=== PATIENT | male | born 1955 | race Caucasian/White ===

== ENCOUNTER 2019-05-24 02:49 | Inpatient (IN) | payer OTHER ==
[~2019-05-24] VITALS: Ht 170.2 cm; Wt 76.7 kg
[2019-05-24] MEDS ORDERED: NS(*) 0.9% 1000 ML BAG 1,000 ML IV ONE ×3 (02:53→05:20)
[2019-05-24] MEDS ORDERED: diphenhydrAMINE 50 MG/ML VIAL IVP ONE (02:55)
[2019-05-24] MEDS ORDERED: methylPREDNIS SUCC 125 MG/2ML IVP ONE (02:55)
[2019-05-24] MEDS ORDERED: ALBUTEROL/IPRATROPIUM 3 ML NEB NEB ONE ×2 (02:55→05:40)
--- NOTE | 2019-05-24 03:05 | ER Report ---
History and Physical Time Seen By MD: 02:55 (JOHANNA JENSEN DO) Time Seen By MD: 07:05 (PRASANNA LEWIS DO) HPI/ROS CHIEF COMPLAINT: Swollen tongue respiratory distress HISTORY OF PRESENT ILLNESS: 63-year-old male brought in by EMS from [facility]. Patient has an extensive history of multiple myeloma, status post failed stem cell transplant, now herpes encephalitis. Patient is brought in with a swollen tongue. He's having some difficulty breathing. His respiratory rate 40. Patient has a history of herpes simplex virus. 6. Encephalitis. He is considered contagious. Report from [facility] staff states that he presented with tongue swelling 1 week ago. Tonight the nurses concern to his respiratory status is worse. Pulse ox was low. His respiratory rate was up. Please see [facility] H&P. REVIEW OF SYSTEMS: Respiratory: As above Cardiovascular: No chest pain, no palpitations. Gastrointestinal: No vomiting, no abdominal pain. Musculoskeletal: No back pain. (JOHANNA JENSEN DO) HPI/ROS Please see Dr. Jensen's note (PRASANNA LEWIS DO) Allergies: Coded Allergies: almond (Verified Allergy, Unknown, 05/24/19) coconut oil (Verified Allergy, Unknown, 05/24/19) codeine (Verified Allergy, Unknown, 05/24/19) corn syrup (Verified Allergy, Unknown, 05/24/19) lentils (Verified Allergy, Unknown, 05/24/19) levofloxacin (Verified Allergy, Unknown, 05/24/19) onion (Verified Allergy, Unknown, 05/24/19) peach (Verified Allergy, Unknown, 05/24/19) peanut (Verified Allergy, Unknown, 05/24/19) pumpkin (Verified Allergy, Unknown, 05/24/19) soybean (Verified Allergy, Unknown, 05/24/19) watermelon (Verified Allergy, Unknown, 05/24/19) Uncoded Allergies: KIDNEY BEANS (Allergy, Unknown, 05/24/19) Home Meds Reported Medications Hydrocodone Bit/Acetaminophen (HYDROCODON-ACETAMINOPHEN 5-325) 1 Each Tablet, 1 EACH FT Q4H, TAB 05/24/19 Docusate Sodium (DOCU LIQUID) 50 Mg/5 Ml Liquid, 100 MG FT Q12H 05/24/19 [Peptomen 1.5 ] No Conflict Check, 240 ML FT FIVE TIMES A DAY 05/24/19 Oxycodone Hcl (OXYCONTIN) 10 Mg Tab.er.12h, 5 MG FT Q6H, TAB 05/24/19 Divalproex Sodium (DIVALPROEX SODIUM) 500 Mg Tablet.dr, 750 MG FT BID, TAB 05/24/19 Clonazepam (CLONAZEPAM) 1 Mg Tablet, 1 MG PO TID, #6 TAB 05/24/19 Baclofen (BACLOFEN) 20 Mg Tablet, 20 MG FT TID, #15 TAB 05/24/19 Potassium Chloride (POTASSIUM CHLORIDE) 20 Meq Packet, 20 MEQ FT QDAY, PACKET 05/24/19 Acyclovir (ACYCLOVIR) 800 Mg Tablet, 800 MG FT BID, #10 TAB 05/24/19 Lactobacillus Acidophilus/Pect (Acidophilus-Pectin Capsule) 1 Each Capsule, 1 TAB FT BID 05/24/19 Prednisone 5 Mg Tab (PREDNISONE 5 MG TAB) 5 Mg Tablet, 5 MG PO QDAY, TAB 05/24/19 Miconazole Nitrate (Athlete's Foot) 71 Gm Powder 05/24/19 Enoxaparin Sodium (LOVENOX) 40 Mg/0.4 Ml Disp.syrin, 40 MG SQ DAILY 05/24/19 [Lidocaine Patch] No Conflict Check, 1 PATCH 05/24/19 Lansoprazole (PREVACID) 30 Mg Capsule.dr, 30 MG FT HS, CAP 05/24/19 Gabapentin (GABAPENTIN) 300 Mg/6 Ml Solution, 900 MG FT HS 05/24/19 Bisacodyl (BISACODYL) 10 Mg Supp.rect, 10 MG FT DAILY, SUPP.RECT 05/24/19 Discontinued Reported Medications [Miconazorb Af Powder] No Conflict Check 05/24/19 Past Medical/Surgical History IgG lambda light chain multiple myeloma. 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 Encephalitis and viremia History of prostate cancer, status post radical prostatectomy Anemia. History of West Nile virus. Peripheral neuropathy. Compression fractures of T7, T12 and L1 Spinal stenosis. Spinal spondylosis GERD Hypertension. Severe deconditioning. Electrolyte abnormalities Dysphagia. Tremor. Adrenal insufficiency (JOHANNA JENSEN DO) Reviewed Nurses Notes: Yes Old Medical Records Reviewed: Yes (JOHANNA JENSEN DO) Constitutional Vital Sign - Last 24 Hours 05/24/19 05/24/19 05/24/19/29/19 02:49 03:00 03:15 03:15 Temp 102.0 Pulse 106 118 125 Resp 42 24 B/P (MAP) 106/73 Pulse Ox 89 88 O2 Delivery Nasal Cannula O2 Flow Rate 6.0 05/24/19 05/24/19 05/24/19 05/24/19 03:15 03:19 03:30 03:34 Pulse 111 113 Resp 48 26 B/P (MAP) 135/105 (115) Pulse Ox 92 95 94 O2 Delivery Oxy Mask 05/24/19 05/24/19 05/24/19 05/24/19 03:36 03:45 03:49 04:00 Pulse 110 B/P (MAP) 139/94 (109) 160/103 (122) 151/98 (115) 05/24/19 05/24/19 05/24/19 05/24/19 04:04 04:15 04:19 04:30 Pulse 107 105 Resp 26 30 B/P (MAP) 147/85 (105) 145/85 (105) Pulse Ox 96 96 05/24/19 05/24/19 05/24/19 05/24/19 04:34 04:45 04:45 04:50 Temp 102.8 Pulse 104 103 Resp 34 27 B/P (MAP) 146/83 (104) Pulse Ox 95 97 05/24/19 05/24/19 05/24/19 05/24/19 05:00 05:15 05:20 05:43 Pulse 96 85 Resp 20 20 B/P (MAP) 140/86 (104) 108/70 (83) Pulse Ox 95 05/24/19 05/24/19 05/24/19 05/24/19 05:43 05:50 06:04 06:30 Temp 100.9 Pulse 81 Resp 34 B/P (MAP) 119/89 (99) Pulse Ox 92 96 O2 Delivery Oxy Mask O2 Flow Rate 5.0 Intake and Output 05/23/19 05/23/19 05/24/19 15:03 23:03 07:03 Intake Total 3100 ml Output Total 50 ml Balance 3050 ml (PRASANNA LEWIS DO) Physical Exam General Appearance: The patient is alert, has no immediate need for airway protection and no current signs of toxicity. Vital signs stable, afebrile, pulse ox in the mid 80s on 2 L O2 HEENT: Pupils equal and round no injection. There is edema to the right eyelid and the tongue is swollen in the mouth. Respiratory: Chest is non tender, lungs are clear to auscultation. Rales and rhonchi bilaterally Cardiac: regular rate and rhythm Gastrointestinal: Abdomen is soft and non tender, no masses, bowel sounds normal. Feeding tube intact in left upper quadrant Musculoskeletal: Neck: Neck is supple and non tender. Contracture, flex and Extremities have full range of motion and are non tender. Skin: No rashes or lesions. DIFFERENTIAL DIAGNOSIS: After history and physical exam differential diagnosis was considered for shortness of breath including but not limited to pulmonary infectious process, COPD, asthma, pulmonary embolus, airway obstruction and congestive heart failure. (JOHANNA JENSEN DO) Physical Exam Please see Dr. Jensen's note (PRASANNA LEWIS DO) Medical Decision Making Data Points Result Diagram: 05/24/19 0300 05/24/19 0300 Laboratory Hematology Test 05/24/19 03:00 White Blood Count 10.5 k/uL (4.5-11.0) Red Blood Count 3.83 M/uL (4.00-5.60) L Hemoglobin 12.0 g/dL (14.0-18.0) L Hematocrit 36.2 % (42.0-52.0) L Mean Corpuscular Volume 94.5 fL (80.0-96.0) Mean Corpuscular Hemoglobin 31.3 pg (26.0-33.0) Mean Corpuscular Hemoglobin Concent 33.1 g/dL (32.0-36.0) Red Cell Distribution Width 15.9 % (11.5-14.5) H Platelet Count 374 K/uL (150-450) Mean Platelet Volume 7.2 fL (7.2-11.1) Neutrophils (%) (Auto) 86.6 % (39.4-72.5) H Lymphocytes (%) (Auto) 5.4 % (17.6-49.6) L Monocytes (%) (Auto) 7.4 % (4.1-12.4) Eosinophils (%) (Auto) 0.2 % (0.4-6.7) L Basophils (%) (Auto) 0.4 % (0.3-1.4) Nucleated RBC Relative Count (auto) 0.0 /100WBC Neutrophils # (Auto) 9.1 K/uL (2.0-7.4) H Lymphocytes # (Auto) 0.6 K/uL (1.3-3.6) L Monocytes # (Auto) 0.8 K/uL (0.3-1.0) Eosinophils # (Auto) 0.0 K/uL (0.0-0.5) Basophils # (Auto) 0.0 K/uL (0.0-0.1) Nucleated RBC Absolute Count (auto) 0.00 K/uL Chemistry Test 05/24/19 03:00 Sodium Level 134 mmol/L (137-145) Potassium Level 4.4 mmol/L (3.5-5.0) Chloride Level 99 mmol/L (98-107) Carbon Dioxide Level 26 mmol/L (22-30) Blood Urea Nitrogen 19 mg/dl (9-21) Creatinine 0.50 mg/dl (0.66-1.25) Glomerular Filtration Rate Calc > 60.0 Random Glucose 146 mg/dl (75-110) Lactate 1.9 mmol/L (0.7-2.1) Calcium Level 8.6 mg/dl (8.4-10.2) Total Bilirubin 0.4 mg/dl (0.2-1.3) Aspartate Amino Transf (AST/SGOT) 27 U/L (0-35) Alanine Aminotransferase (ALT/SGPT) 23 U/L (0-56) Alkaline Phosphatase 74 U/L (0-126) Total Protein 6.5 g/dl (6.3-8.2) Albumin 3.2 g/dl (3.5-5.0) Toxicology Test 05/24/19 03:00 Valproic Acid (Depakene) Level 33.5 ug/ml Urinalysis Test 05/24/19 02:53 Urine Color Yellow Urine Clarity Slightly-cloudy Urine pH 5.0 pH (4.8-9.5) Urine Specific [place] 1.026 Urine Protein 30 mg/dL (NEGATIVE) Urine Glucose (UA) Negative mg/dL (NEGATIVE) Urine Ketones Trace mg/dL (NEGATIVE) Urine Blood Negative (NEGATIVE) Urine Nitrite Negative (NEGATIVE) Urine Bilirubin Negative (NEGATIVE) Urine Urobilinogen Negative mg/dL (0.2-1.9) Urine Leukocyte Esterase Small (NEGATIVE) Urine RBC 28 /HPF (0-2/HPF) Urine WBC 145 /HPF (0-5/HPF) Urine Squamous Epithelial Cells Moderate /LPF (NONE-FEW) Urine Transitional Epithelial Cells Few /LPF (NONE-FEW) Urine Bacteria Few /HPF (NONE-FEW) Urine Hyaline Casts Few /LPF (NONE-FEW) Urine Mucus Few /HPF (NONE-FEW) Urine Yeast (Budding) Few /HPF (PRASANNA LEWIS DO) EKG/Imaging EKG Interpretation 12 lead EKG: Rhythm: Sinus tachycardia, rate 10 4 bpm [place]: normal QRS: Left anterior fascicular block ST segments: normal, no evidence of ischemia, no old EKGs for comparison Imaging X-ray: Single view portable chest x-ray was obtained. I viewed the images myself on the PACS system. My interpretation of the images is: Limited image, but no dean infiltrate noted. There is obstruction of the right lung lopez from his contracted head blocking the view.. The radiologist interpretation had no clinically significant variation from this interpretation. (JOHANNA JENSEN DO) ED Course/Re-evaluation Clinical Indication for ER IV: Hydration, IV Access ED Course [facility] with tongue swelling and hypoxia. Patient has excessive secretions. Patient has a known seizure disorder. His valproic acid level came back subtherapeutic. He is currently on 750 mg per feeding tube twice a day. This likely needs to be increased with thousand twice a day to get his level into the therapeutic range. I suspect the patient has been seizing and biting his tongue, multiple times. It is grossly swollen in the anterior aspect. Patient's white blood cell counts normal. Patient's treated with DuoNeb's, recently Become a sodium Medrol, Benadryl IV. In case his tongue swelling is related to angioedema or allergic reaction, which seems unlikely in his condition. Patient's given Zosyn for potential tongue infection and urinary tract infection. He is on Bactrim 3 times weekly for prevention. Patient is chronically on acyclovir 800 mg through his feeding tube. Patient did spike a fever here to nearly 103. Patient was given Tylenol 650 mg in his feeding tube, as well as Motrin 600 mg. He received 3 L of saline. Initially his blood pressure was 107. He was tachycardic in the 120s. Responded to fluid resuscitation. His lactate was normal. Patient will likely need to be admitted to the hospital for several days of IV antibiotic and close monitoring of his tongue swelling. I did consider intubating the patient and do not think it is indicated at this time. Intubating the patient may be problematic with his neck contracture and his swollen tongue. He seems to oxygenate well with a mask over his nose. He does have significant secretions that need to be suctioned frequently. Decision to Disposition Date: May 24, 2019 Decision to Disposition Time: 05:22 (JOHANNA JENSEN DO) ED Course I assumed patient care from Dr. Jensen at shift change at 7:00. Patient was placed on lactated Ringer's maintenance at 125 an hour. I discussed the patient with Dr. Mary allen who accepted the patient to the hospitalist service. Patient was hemodynamically stable at time of admission. Decision to Disposition Date: May 24, 2019 Decision to Disposition Time: 07:55 (PRASANNA LEWIS DO) Depart Departure Latest Vital Signs Vital Signs Date Time Temp Pulse Resp B/P (MAP) Pulse Ox O2 Delivery O2 Flow Rate FiO2 05/24/19 06:30 100.9 05/24/19 06:04 119/89 (99) 05/24/19 05:50 81 34 96 05/24/19 05:43 Oxy Mask 5.0 (PRASANNA LEWIS DO) Impression: Primary Impression: Tongue swelling Additional Impressions: Tongue infection Urinary tract infection Herpes encephalitis Hypoxia Seizure disorder Condition: Improved Disposition: Admitted from ER Problem Qualifiers Additional Impressions: Urinary tract infection Urinary tract infection type: acute cystitis Hematuria presence: without hematuria Qualified Codes: N30.00 - Acute cystitis without hematuria JOHANNA JENSEN DO May 24, 2019 03:05 PRASANNA LEWIS DO May 24, 2019 07:09
[2019-05-24] MEDS ORDERED: NS 0.9% NEB 3 ML SOLN INH PRN (03:10)
[2019-05-24] MEDS ORDERED: EPINEPHrine 2.25% 0.5 ML NEB NEB ONE (03:10)
[2019-05-24 03:29] LABS: PLATELET COUNT, AUTOMATED 374 K/uL (150-450)
--- NOTE | 2019-05-24 03:47 | RADIOLOGY IMAGING REPORT ---
FACILITY: [facility] PATIENT NAME: Shamar Torres : 1955 MR: [id number] V: [id number] EXAM DATE: ORDERING PHYSICIAN: JOHANNA HERNANDEZ TECHNOLOGIST: [place] [facility] [place]: Shamar Torres : 1955 Visit/Account:[id number] Date of Sevice: 05/24/2019 CHEST SINGLE AP HISTORY: Unresponsive. Kyphosis. COMPARISON: 05/17/2019. FINDINGS: The patient is rotated to the right and the patient's chin obscures a large Imani of the r ight lung. Lines/tubes: Left chest wall port terminating in the superior vena cava. Lungs/pleura: Minimal linear atelectasis in the left lung base. No definite abnormality in the right lung, although the right lung is not well seen secondary to patient positioning. Heart: Negative. Mediastinum: Negative. Bony structures/body wall: Cement in a couple of inferior thoracic or upper lumbar vertebral bodies. IMPRESSION: 1. Suboptimal evaluation secondary to patient positioning. The patient is rotated to the right and th e patient's chin obscures a large portion of the right lung. 2. Minimal linear atelectasis in the left lung base. 3. No definite abnormality in the right lung, however the right lung is not well seen secondary to pa tient positioning. Report Dictated By: Leonides Du MD at 05/24/2019 3:36 AM Report E-Signed By: Leonides Du MD at 05/24/2019 3:40 AM WSN:[id number]
[2019-05-24] MEDS ORDERED: [UNRECOGNIZED DRUG - OTHER] (04:18)
[2019-05-24] MEDS ORDERED: ENOX40DI8 SQ (04:18)
[2019-05-24] MEDS ORDERED: GABA300S FT ×2 (04:18→12:20)
[2019-05-24] MEDS ORDERED: LAN30PT FT (04:18)
[2019-05-24] MEDS ORDERED: LIDOCAINE PATCH (04:18)
[2019-05-24] MEDS ORDERED: BISA10SU62 RC (04:18)
[2019-05-24] MEDS ORDERED: LACT1CAP18 FT (04:30)
[2019-05-24] MEDS ORDERED: OXYC-823 FT (04:30)
[2019-05-24] MEDS ORDERED: ACYC800T99 FT (04:30)
[2019-05-24] MEDS ORDERED: POTA20PA25 FT (04:30)
[2019-05-24] MEDS ORDERED: BACL-51 FT (04:30)
[2019-05-24] MEDS ORDERED: DIVA500T47 FT (04:30)
[2019-05-24] MEDS ORDERED: CLON-333 FT (04:30)
[2019-05-24] MEDS ORDERED: PRE5 FT (04:30)
[2019-05-24] MEDS ORDERED: MICO71PO4 (04:30)
[2019-05-24] MEDS ORDERED: ACETAMINOPHEN 160 MG/5 ML UDC FT ONE (04:40)
[2019-05-24] MEDS ORDERED: PIPERACILLIN/TAZO*3.375GM VIAL 3.375 GM in NS(*) 0.9% 100 ML MINI-BAG 100 ML IVPB ONE (04:45)
[2019-05-24] MEDS ORDERED: IBUPROFEN 100 MG/5 ML UDCUP PO ONE (05:20)
[2019-05-24] MEDS ORDERED: VALPROIC ACID 250 MG/5 ML FT ONE (05:25)
[2019-05-24] MEDS ORDERED: [UNRECOGNIZED DRUG - OTHER] FT (05:59)
[2019-05-24] MEDS ORDERED: HYDR-385 FT (06:01)
[2019-05-24] MEDS ORDERED: DOCU50LI30 FT (06:01)
[2019-05-24] MEDS ORDERED: LR(*) 1000 ML BAG 1,000 ML IV ONE (07:21)
--- NOTE | 2019-05-24 08:39 | EKG ---
[place] [facility] [place] MADAN SHANE : [id number] MR: [id number] V: [id number] EXAM DATE: ORDERING PHYSICIAN: JOHANNA HERNANDEZ TECHNOLOGIST: SHERRY Dorsey Reason : Blood Pressure : / mmHG Vent. Rate : 104 BPM Atrial Rate : 104 BPM P-R Int : 118 ms QRS Dur : 080 ms QT Int : 332 ms P-R-T Axes : 057 -61 061 degrees QTc Int : 436 ms Sinus tachycardia Left anterior fascicular block Abnormal ECG No previous ECGs available Confirmed by Efraín Segovia ([id number]) on 05/25/2019 12:34:43 AM Referred By: Confirmed By:Efraín Dobbins
[2019-05-24 08:59] VITALS: BP 101/66
[2019-05-24] MEDS ORDERED: SULF473O2 FT (12:20)
[2019-05-24] MEDS ORDERED: [UNRECOGNIZED DRUG - CODE] FT (12:20)
[2019-05-24] MEDS ORDERED: LIDO700A19 TOP (12:20)
[2019-05-24] MEDS ORDERED: POLY17PO25 FT (12:20)
[2019-05-24] MEDS ORDERED: DIVA125C12 FT (12:20)
[2019-05-24] MEDS ORDERED: OXYC5CAP21 FT (12:20)
[2019-05-24] MEDS ORDERED: BISA-229 FT (12:20)
[2019-05-24] MEDS ORDERED: ACET650S5 FT (12:20)
[2019-05-24] MEDS ORDERED: PROM25SU8 RC (12:20)
[2019-05-24] MEDS ORDERED: CHLO473M14 PO (12:20)
[2019-05-24 12:22] VITALS: BP 91/53
[2019-05-24] MEDS ORDERED: FLUSH 10 ML SYR IVP PRN (14:20)
[2019-05-24] MEDS ORDERED: ONDANSETRON 4 MG/2 ML VIAL IVP PRN (14:20)
[2019-05-24 15:03] VITALS: BP 108/67
[2019-05-24] MEDS: PIPERACILLIN/TAZO*3.375GM VIAL 3.375 GM in NS(*) 0.9% 100 ML MINI-BAG 100 ML IVPB SCH ×2 (15:09→20:49)
[2019-05-24] MEDS: NS(*) 0.9% 1000 ML BAG 1,000 ML IV PRN (17:28)
--- NOTE | 2019-05-24 19:13 | History & Physical ---
History of Present Illness Chief Complaint dyspnea History of Present Illness 63M presented with caregiver concern of increased work of breathing. PMHx significant for multiple myeloma, s/p stem cell transplant. Complicated by HHV6 encephalitis. Transplant done , began having increased confusion and was diagnosed with HHV6 encephalitis in . Was discharged to [facility] where he spent around one month per family. He was just discharged to [facility] for continued care. Staff reported increased work of breathing and he was brought to ER. Patient febrile, needing supplemental O2. At baseline patient is non-verbal does not interact per staff at [facility]. He grimaces at pain but is otherwise unresponsive. Discussed with family and patient is DNR. Neurology evaluation during recovery estimated 80% likely to remain in near vegetative state per record review. History Problems: (1) Seizure disorder Status: Chronic (2) Hypoxia Status: Chronic (3) Herpes encephalitis Status: Chronic Home Meds Reported Medications Promethazine HCl (Phenergan) 25 Mg Supp.rect, 1 SUPP.RECT RC Q6H PRN for NAUSEA 05/24/19 Polyethylene Glycol 3350 (MIRALAX) 17 Gm Powd.pack, 17 GM FT QDAY PRN for CONSTIPATION, PKT 05/24/19 Acetaminophen (ACETAMINOPHEN) 650 Mg/20.3 Ml Solution, 650 MG FT Q4H PRN for PAIN, ML FOR PAIN LEVEL 1-3 OR FEVER >100 05/24/19 Nutritional Supplement (PEPTAMEN 1.5) 250 Ml Liquid, 240 ML FT 5XD 05/24/19 Oxycodone Hcl (OXYCODONE HCL) 5 Mg Capsule, 1 CAP FT Q6H, CAPSULE 05/24/19 Divalproex Sodium (DIVALPROEX SODIUM) 125 Mg Cap.sprink, 750 MG FT TID, CAP 05/24/19 Chlorhexidine Gluconate (Peridex) 0.12 % Mouthwash, 15 ML PO BID SWISH AND SPIT; FOR ORAL CARE 05/24/19 Gabapentin (GABAPENTIN) 300 Mg/6 Ml Solution, 600 MG FT BID 05/24/19 Sulfamethoxazole/Trimethoprim (Sulfatrim Pediatric Suspension) 473 Ml Oral.susp, 20 ML FT 3XW GIVEN ON MON WED & FRI FOR INFECTION ORDER DATE 05/21/2019 05/24/19 Lidocaine (Lidocaine) 5 % Adh..patch, 1 PATCH TOP QDAY APPLY QDAY @ 9:00 REMOVE @ 21:00 05/24/19 Bisacodyl (DULCOLAX) 5 Mg Tablet.dr, 2 TAB FT QDAY 05/24/19 Hydrocodone Bit/Acetaminophen (HYDROCODON-ACETAMINOPHEN 5-325) 1 Each Tablet, 1 EACH FT Q4H, TAB 05/24/19 Docusate Sodium (DOCU LIQUID) 50 Mg/5 Ml Liquid, 100 MG FT Q12H PRN for CONSTIPATION 05/24/19 Clonazepam (CLONAZEPAM) 1 Mg Tablet, 1 MG FT TID, #6 TAB 05/24/19 Baclofen (BACLOFEN) 20 Mg Tablet, 20 MG FT TID, #15 TAB 05/24/19 Potassium Chloride (POTASSIUM CHLORIDE) 20 Meq Packet, 20 MEQ FT BID, PACKET WITH AT LEAST 4 OZ OF LIQUID 05/24/19 Acyclovir (ACYCLOVIR) 800 Mg Tablet, 800 MG FT BID, #10 TAB 05/24/19 Lactobacillus Acidophilus/Pect (Acidophilus-Pectin Capsule) 1 Each Capsule, 1 TAB FT BID 05/24/19 Prednisone 5 Mg Tab (PREDNISONE 5 MG TAB) 5 Mg Tablet, 5 MG FT QDAY, TAB 05/24/19 Miconazole Nitrate (Athlete's Foot) 71 Gm Powder APPLY TOPICALLY TO AFFECTED AREAS EVERY 24 HRS PRN SKIN IRRITATION 05/24/19 Enoxaparin Sodium (LOVENOX) 40 Mg/0.4 Ml Disp.syrin, 40 MG SQ DAILY 05/24/19 Lansoprazole (PREVACID) 30 Mg Capsule.dr, 30 MG FT HS, CAP 05/24/19 Gabapentin (GABAPENTIN) 300 Mg/6 Ml Solution, 900 MG FT HS 05/24/19 Bisacodyl (BISACODYL) 10 Mg Supp.rect, 10 MG RC DAILY, SUPP.RECT SECOND CHOICE IF NO RESULT FROM TABLET VIA FEEDING TUBE 05/24/19 Discontinued Reported Medications [Peptomen 1.5 ] No Conflict Check, 240 ML FT FIVE TIMES A DAY 05/24/19 Oxycodone Hcl (OXYCONTIN) 10 Mg Tab.er.12h, 5 MG FT Q6H, TAB 05/24/19 Divalproex Sodium (DIVALPROEX SODIUM) 500 Mg Tablet.dr, 750 MG FT BID, TAB 05/24/19 [Miconazorb Af Powder] No Conflict Check 05/24/19 [Lidocaine Patch] No Conflict Check, 1 PATCH 05/24/19 Allergies: Coded Allergies: almond (Verified Allergy, Unknown, 05/24/19) coconut oil (Verified Allergy, Unknown, 05/24/19) codeine (Verified Allergy, Unknown, 05/24/19) corn syrup (Verified Allergy, Unknown, 05/24/19) lentils (Verified Allergy, Unknown, 05/24/19) levofloxacin (Verified Allergy, Unknown, 05/24/19) onion (Verified Allergy, Unknown, 05/24/19) peach (Verified Allergy, Unknown, 05/24/19) peanut (Verified Allergy, Unknown, 05/24/19) pumpkin (Verified Allergy, Unknown, 05/24/19) soybean (Verified Allergy, Unknown, 05/24/19) watermelon (Verified Allergy, Unknown, 05/24/19) Uncoded Allergies: KIDNEY BEANS (Allergy, Unknown, 05/24/19) Review of Systems Other unable to obtain other than noted Exam Vital Signs Vital Signs Date Time Temp Pulse Resp B/P (MAP) Pulse Ox O2 Delivery O2 Flow Rate FiO2 05/24/19 15:03 97.6 65 14 108/67 (81) 94 High-Flow Nasal Cannula 1.0 General Appearance: Afebrile Cardiovascular: Normal Rhythm & Peripheral Pulses Respiratory: No Respiratory Distress GI: Abd Soft and Non-Tender Extremities: Soft and Non Tender, Warm, Pulses, Perfused Medical Decision Making Data Points Result Diagram: 05/24/19 0300 05/24/19 0300 Assessment and Plan Problems: (1) Fever Status: Acute Assessment & Plan: Per family this has been ongoing with no source identified, he did complete vancomycin recently and had IJ removed 3 weeks ago. No previous culture data is available. CXR appears clear though suboptimally evaluated, he has needed O2 since coming to [place]. Urine appears dirty but has indwelling [place] since February 2019, unlikely this is source. Will cover with Zosyn and monitor cultures. (2) Hypoxia Status: Chronic Assessment & Plan: On 2L since coming [place], he is at baseline. (3) Encephalopathy Assessment & Plan: Appears to be chronic and at baseline, family report more interactivity but this may be more subjective than objective. Prognosis is poor. (4) Herpes encephalitis Status: Chronic Assessment & Plan: Now on chronic suppression after completing treatment with negative LP PCR. Unfortunately appears to have severe sequelae and prognosis is poor. Given period of time and possible continued decline would not anticipate any meaningful recovery. (5) Seizure disorder Status: Chronic Assessment & Plan: Per family no epileptiform activity on EEG multiple times. Was originally diagnosed due to repetitive tongue protrusion. He is on Depakote and was given increased dosing due to subtherapeutic level on admission. Venous Thromboembolism Antithrombotics Is Pt On Any Antithrombotics?: Yes Exam Sepsis Risk: No Definite Risk PETTY DOREEN JOSEPH DO May 24, 2019 19:13
[2019-05-24 19:14] VITALS: BP 113/68
[2019-05-24] MEDS: ACYCLOVIR 200 MG CAP FT SCH (20:49)
[2019-05-24 23:45] VITALS: BP 120/78
[2019-05-25] MEDS: NS(*) 0.9% 1000 ML BAG 1,000 ML IV PRN ×2 (02:05→11:33)
[2019-05-25 03:30] VITALS: BP 126/80
[2019-05-25] MEDS: PIPERACILLIN/TAZO*3.375GM VIAL 3.375 GM in NS(*) 0.9% 100 ML MINI-BAG 100 ML IVPB SCH ×2 (03:36→09:43)
[2019-05-25 05:57] LABS: PLATELET COUNT, AUTOMATED 354 K/uL (150-450)
[2019-05-25 07:38] VITALS: BP 139/79
[2019-05-25] MEDS ORDERED: ENOXAPARIN 40 MG/0.4ML SYR SC SCH (09:00)
[2019-05-25] MEDS: ACYCLOVIR 200 MG CAP FT SCH (09:43)
[2019-05-25] MEDS ORDERED: KCL (*) 20 MEQ/100 ML PREMIX 100 ML IV SCH (10:00)
--- NOTE | 2019-05-25 10:52 | Hospitalist Progress Note ---
Subjective Progress Notes Subjective This patient was admitted for pneumonia. He had an aspiration episode overnight. Patient Complains of: Cardiovascular: No: Chest Pain Respiratory: No: Shortness of Breath Physical Exam Vital Signs Date Time Temp Pulse Resp B/P (MAP) Pulse Ox O2 Delivery O2 Flow Rate FiO2 05/25/19 07:38 98.0 87 28 139/79 (99) 94 Oxy Mask 5.0 Intake and Output 05/25/19 07:03 Intake Total 2078 ml Output Total 1150 ml Balance 928 ml Intake Oral 0 ml IV Total 2018 ml Tube Irrigant 60 ml Output Urine Total 1150 ml # Bowel Movements 3 Neuro: Other (Unresponsive. With minimal response to pain or deep suctioning.) Cardiovascular: Regular Rate and Rhythm Respiratory: Other (Bilateral rhonchi.) Extremities: No Edema Integumentary: No Cyanosis Result Diagram: 05/25/1951905/25/19519 Assessment and Plan Problems: (1) Fever Status: Acute Assessment & Plan: Per family this has been ongoing with no source identified, he did complete vancomycin recently and had IJ removed 3 weeks ago. He is on empiric treatment with Zosyn. One of two cultures is growing a gram positive cocci. 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 He has been in his current neurologic condition since that time. (3) Herpes encephalitis Status: Chronic Assessment & Plan: He remains on chronic acyclovir. (4) Hypoxia Status: Chronic Assessment & Plan: On 2L since coming to [place] in [place], he is at baseline. (5) Seizure disorder Status: Chronic Assessment & Plan: Per family no epileptiform activity on EEG multiple times. Was originally diagnosed due to repetitive tongue protrusion. He is on Depakote and was given increased dosing due to subtherapeutic level on admission. Exam Sepsis Risk: No Definite Risk VY PENNY DO May 25, 2019 10:52
--- NOTE | 2019-05-25 11:58 | Medical Nutrition Therapy ---
Nutrition Anthropometrics Height (Inches): 67.00 Height (Calculated Centimeters: 170.828583 Weight (Pounds): 169 Weight (Calculated Kilograms): 76.714 BMI: 26.5 Parish Nutrition Score: Probably Inadequate Parish Nutrition Risk Score: 11 Dietary Referral Nutrition Risk Factors: Nutrition Risk Comment: Physical Findings Physical Appearance: Overweight BMI 25-29 Skin Appearance Skin Appearance: Edema Edema Location Modifier: Edema Location: Generalized Type of Edema: Degree of Edema: Gastrointestinal Symptoms GI Symtoms: Diarrhea Tube Present: PEG Bowel Sounds: Recent Bowel Pattern: Stool Characteristics: Nutrition/Food History TPN/PPN Prior to Admit Nutritional Diagnosis Nutritional Risk Acuity 1: Tube Feed Unstable Nutritional Acuity: 1-High Nutrition Diagnosis: Involuntary Wt. Gain, Altered GI Function Nutrition Etiology: Physiological Causes Nutrition Problem/Etiology/Sym: Aspiration event, Decreased ability to clear secretions Energy Requirement: 1991 Protein Requirement: 92 (1.2g/kg) Fluid Requirement: 1991 Nutritional Support Tube Feeding Supplement Streng: Full Nutrition Monitoring & Eval RD Patient Assessment Time: [address] Assessment Type: RD Assessment Patient Nutrition Acuity: 1-High Follow Up Date: May 28, 2019 Nutritional Comment: 05/25/19-Pt admit from [facility], recent bone marrow transplant, has herpes encephalitis. Spoke with RN at [facility]. Pt was recieving Peptamen 1.5 (237 mL) 5x/day with 200mL free water every 8 hours via PEG tube. Discussed pt at IDT rounds, tube feeding was stopped last night due to an aspiration event. Pt in comatose state, is having increased secretions and has decreased ability to clear secretions. Will continue to monitor pt status and plan of care.DAVID RICE May 25, 2019 11:58
--- NOTE | 2019-05-25 12:22 | Miscellaneous Provider Note ---
Miscellaneous Provider Note Note I did speak with the patients over the phone today. She has requested that we transition to comfort measures and end of life care. This does seem like a reasonable decision given his current neurologic condition and prognosis. We have discontinued all nonessential medications. He has been started on morphine and lorazepam in addition to other comfort measures. An ECF evaluation has also been requested. VY PENNY DO May 25, 2019 12:22
[2019-05-25] MEDS: GLYCOPYRROLATE 0.2MG/ML 1 ML INJ IVP PRN (14:21)
[2019-05-25] MEDS: LORazepam 2 MG/ML VIAL IV PRN (14:24)
--- NOTE | 2019-05-25 15:52 | NUR ---
ECF Referral - Received referral, questioned since he is currently a resident of [facility]. Spoke with Dr. Shay and he reported he didn't have a preference on where he receives end of life care. Chiquis Knight, RN Utilization Review contacted and she stated that she had just spoken with his [facility] case work aide and agrees that he should return to [facility]. Unsure if SNF benefits (if he has them) would cover end of life care on a SNF. Message left for ADIA Serrano nurse.
--- NOTE | 2019-05-25 20:06 | Antimicrobial Stewardship ---
Antimicrobial Time Out Antimicrobial Stewardship MD Service: Hospitalist Indications: CAP, HAP Antimicrobial Used ZOSYN Start Date: May 24, 2019 Culture Results: Yes (G+ COCCI) Eligible for PO Conversion Eligable for PO Conversion: No Reviewed with Provider Reviewed w/ Provider on Rounds: No Comments Comments Patient admitted for suspected respiratory infection. Patient is now end of life care and all antimicrobials have been stopped. AARTI LORENZANA May 25, 2019 20:06
[2019-05-25 20:18] VITALS: BP 150/89
[2019-05-26] MEDS: LORazepam 2 MG/ML VIAL IV PRN ×6 (00:32→21:15)
[2019-05-26] MEDS: GLYCOPYRROLATE 0.2MG/ML 1 ML INJ IVP PRN ×2 (05:12→11:25)
[2019-05-26] MEDS: MORPHINE 2 MG/ML SYR IVP PRN ×2 (05:28→09:14)
[2019-05-26] MEDS ORDERED: TRIMETH/SULFA DS 160-800MG TAB FT SCH (09:00)
--- NOTE | 2019-05-26 11:00 | Hospitalist Progress Note ---
Subjective Progress Notes Subjective He is unresponsive to verbal, tactile stimuli. Anil-Richards respirations. Physical Exam Vital Signs Date Time Temp Pulse Resp B/P (MAP) Pulse Ox O2 Delivery O2 Flow Rate FiO2 05/26/19 09:32 89 Room Air 05/26/19 07:53 101.1 05/25/19 20:18 98 25 150/89 (109) 05/25/19 12:10 4.0 Intake and Output 05/26/19 07:03 Intake Total 1218 ml Output Total 1052 ml Balance 166 ml IV Total 1218 ml Output Urine Total 1050 ml Gastric Drainage Total 2 ml # Bowel Movements 2 General Appearance: Other (Unresponsive/Anil-Richards respirations) Neuro: Other (essentially flaccid in all extremities/does not withdraw or react to stimuli) Cardiovascular: Other (Tachycardic regular) Respiratory: Other (Diffuse rhonchi) Chest: Other (port left upper chest clean/dry/no erythema) GI: Other (soft/rare BS/PEG tube LUQ) Extremities: Warm, Perfused Integumentary: Generalized Fragile Skin Result Diagram: 05/25/1951905/25/19519 Assessment and Plan Problems: (1) Encephalopathy Assessment & Plan: 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 He has been in his current neurologic/vegetative condition since that time. His family has now decided to pursue only comfort measures/end-of-life care. The empiric antibiotics have been stopped. He is receiving IV analgesics, anxiolytics, anti-emetics as needed. (2) Fever Status: Acute Assessment & Plan: Per family this has been ongoing with no source identified, he did complete vancomycin recently and had IJ port removed 3 weeks ago. He was on empiric treatment with IV Zosyn. The antibiotics have now been stopped as family has requested comfort measures/end-of-life care. (3) Herpes encephalitis Status: Chronic Assessment & Plan: He was on chronic acyclovir. It has now been stopped as well. (4) Hypoxia Status: Chronic Assessment & Plan: On 2L since coming to altitude in [place], he is at baseline. (5) Seizure disorder Status: Chronic Assessment & Plan: Per family no epileptiform activity on EEG multiple times. Was originally diagnosed due to repetitive tongue protrusion. He was on Depakote, but this has been stopped. Exam Sepsis Risk: Severe Sepsis Risk JARED GAITAN MD May 26, 2019 11:00
[2019-05-26 18:49] VITALS: BP 121/78
[2019-05-27 07:05] VITALS: BP 151/85
[2019-05-27] MEDS: LORazepam 2 MG/ML VIAL IV PRN ×2 (11:50→16:48)
--- NOTE | 2019-05-27 13:53 | Hospitalist Progress Note ---
Subjective Progress Notes Subjective 63M appears comfortable this am. 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 He has been in his current neurologic/vegetative condition since that time. His family has now decided to pursue only comfort measures/end-of-life care. The empiric antibiotics have been stopped. He is receiving IV analgesics, anxiolytics, anti-emetics as needed. (2) Fever Status: Acute Assessment & Plan: Per family this has been ongoing with no source identified, he did complete vancomycin recently and had IJ port removed 3 weeks ago. He was on empiric treatment with IV Zosyn. The antibiotics have now been stopped as family has requested comfort measures/end-of-life care. (3) Herpes encephalitis Status: Chronic Assessment & Plan: He was on chronic acyclovir. It has now been stopped as well. (4) Hypoxia Status: Chronic Assessment & Plan: On 2L since coming to altitude in [place]. (5) Seizure disorder Status: Chronic Assessment & Plan: Per family no epileptiform activity on EEG multiple times. Was originally diagnosed due to repetitive tongue protrusion. He was on Depakote, but this has been stopped. Exam Sepsis Risk: Severe Sepsis Risk DOREEN HERNDON DO May 27, 2019 13:53
[2019-05-27] MEDS: GLYCOPYRROLATE 0.2MG/ML 1 ML INJ IVP PRN (16:49)
[2019-05-27] MEDS ORDERED: MORP100S32 PO (17:19)
[2019-05-27] MEDS ORDERED: LORA2VIA28 SQ (17:19)
[2019-05-27] MEDS ORDERED: [UNRECOGNIZED DRUG - CODE] SQ (17:19)
--- NOTE | 2019-05-27 17:22 | Hospitalist Depart ---
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 He has been in his current neurologic/vegetative condition since that time. His family has now decided to pursue only comfort measures/end-of-life care. He is receiving analgesics, anxiolytics, anti- emetics as needed. (2) Fever Status: Acute Hospital Course & Plan: Per family this has been ongoing with no source identified, he did complete vancomycin recently and had IJ port removed 3 weeks ago. He was on empiric treatment with IV Zosyn. The antibiotics have now been stopped as family has requested comfort measures/end-of-life care. (3) Herpes encephalitis Status: Chronic Hospital Course & Plan: He was on chronic acyclovir. It has now been stopped (4) Hypoxia Status: Chronic Hospital Course & Plan: On 2L since coming to altitude in [place]. (5) Seizure disorder Status: Chronic Hospital Course & Plan: Per family no epileptiform activity on EEG multiple times. Was originally diagnosed due to repetitive tongue protrusion. He was on Depakote, but this has been stopped. Departure Weight (Pounds): 169 Weight (Ounces): 2.0 Result Diagram: 05/25/1951905/25/19519 Condition: No Change Discharge: Hospice Discharge Code Status: DNR, DNI Discharge Instructions Home Meds Active Scripts Lorazepam (LORAZEPAM) 2 Mg/1 Ml Vial, 1 MG SQ Q2H PRN for ANXIETY for 1 Day, #10 VIAL Prov:DOREEN HERNDON DO 05/27/19 Glycopyrrolate in Water/Pf (Glycopyrrolate 0.2 mg/ml Syrng) 0.2 Mg/Ml Syringe, 0.2 MG SQ Q6H PRN for secretions for 1 Day, #6 SYR Prov:DOREEN HERNDON DO 05/27/19 Morphine Sulfate 20 MG/ML Oral Solution (ROXANOL 20 MG/ML) 100 Mg/5 Ml Solution, 10 MG PO Q2H for PAIN for 2 Days, #5 ML Prov:DOREEN HERNDON DO 05/27/19 Reported Medications Promethazine HCl (Phenergan) 25 Mg Supp.rect, 1 SUPP.RECT RC Q6H PRN for NAUSEA 05/24/19 Polyethylene Glycol 3350 (MIRALAX) 17 Gm Powd.pack, 17 GM FT QDAY PRN for CONSTIPATION, PKT 05/24/19 Acetaminophen (ACETAMINOPHEN) 650 Mg/20.3 Ml Solution, 650 MG FT Q4H PRN for PAIN, ML FOR PAIN LEVEL 1-3 OR FEVER >100 05/24/19 Nutritional Supplement (PEPTAMEN 1.5) 250 Ml Liquid, 240 ML FT 5XD 05/24/19 Oxycodone Hcl (OXYCODONE HCL) 5 Mg Capsule, 1 CAP FT Q6H, CAPSULE 05/24/19 Divalproex Sodium (DIVALPROEX SODIUM) 125 Mg Cap.sprink, 750 MG FT TID, CAP 05/24/19 Chlorhexidine Gluconate (Peridex) 0.12 % Mouthwash, 15 ML PO BID SWISH AND SPIT; FOR ORAL CARE 05/24/19 Gabapentin (GABAPENTIN) 300 Mg/6 Ml Solution, 600 MG FT BID 05/24/19 Sulfamethoxazole/Trimethoprim (Sulfatrim Pediatric Suspension) 473 Ml Oral.susp, 20 ML FT 3XW GIVEN ON Fri & FRI FOR INFECTION ORDER DATE 05/21/2019 05/24/19 Lidocaine (Lidocaine) 5 % Adh..patch, 1 PATCH TOP QDAY APPLY QDAY @ 9:00 REMOVE @ 21:00 05/24/19 Bisacodyl (DULCOLAX) 5 Mg Tablet.dr, 2 TAB FT QDAY 05/24/19 Hydrocodone Bit/Acetaminophen (HYDROCODON-ACETAMINOPHEN 5-325) 1 Each Tablet, 1 EACH FT Q4H, TAB 05/24/19 Docusate Sodium (DOCU LIQUID) 50 Mg/5 Ml Liquid, 100 MG FT Q12H PRN for CONSTIPATION 05/24/19 Clonazepam (CLONAZEPAM) 1 Mg Tablet, 1 MG FT TID, #6 TAB 05/24/19 Baclofen (BACLOFEN) 20 Mg Tablet, 20 MG FT TID, #15 TAB 05/24/19 Potassium Chloride (POTASSIUM CHLORIDE) 20 Meq Packet, 20 MEQ FT BID, PACKET WITH AT LEAST 4 OZ OF LIQUID 05/24/19 Acyclovir (ACYCLOVIR) 800 Mg Tablet, 800 MG FT BID, #10 TAB 05/24/19 Lactobacillus Acidophilus/Pect (Acidophilus-Pectin Capsule) 1 Each Capsule, 1 TAB FT BID 05/24/19 Prednisone 5 Mg Tab (PREDNISONE 5 MG TAB) 5 Mg Tablet, 5 MG FT QDAY, TAB 05/24/19 Miconazole Nitrate (Athlete's Foot) 71 Gm Powder APPLY TOPICALLY TO AFFECTED AREAS EVERY 24 HRS PRN SKIN IRRITATION 05/24/19 Enoxaparin Sodium (LOVENOX) 40 Mg/0.4 Ml Disp.syrin, 40 MG SQ DAILY 05/24/19 Lansoprazole (PREVACID) 30 Mg Capsule.dr, 30 MG FT HS, CAP 05/24/19 Gabapentin (GABAPENTIN) 300 Mg/6 Ml Solution, 900 MG FT HS 05/24/19 Bisacodyl (BISACODYL) 10 Mg Supp.rect, 10 MG RC DAILY, SUPP.RECT SECOND CHOICE IF NO RESULT FROM TABLET VIA FEEDING TUBE 05/24/19 Discontinued Reported Medications [Peptomen 1.5 ] No Conflict Check, 240 ML FT FIVE TIMES A DAY 05/24/19 Oxycodone Hcl (OXYCONTIN) 10 Mg Tab.er.12h, 5 MG FT Q6H, TAB 05/24/19 Divalproex Sodium (DIVALPROEX SODIUM) 500 Mg Tablet.dr, 750 MG FT BID, TAB 05/24/19 [Miconazorb Af Powder] No Conflict Check 05/24/19 [Lidocaine Patch] No Conflict Check, 1 PATCH 05/24/19 Diet: Regular Activity: As Tolerated Venous Thromboembolism Antithrombotics Is Pt On Any Antithrombotics?: Yes DOREEN HERNDON DO May 27, 2019 17:22
== END 2019-05-27 17:59 | disposition hospice, inpatient (51) | DRG 98 ==
LOC: ER 02:56 → MED 08:17
PROVIDERS: ADMIT Internal Medicine; ATTEND Internal Medicine
DX: B10.01 Human herpesvirus 6 encephalitis (principal); N30.00 Acute cystitis without hematuria; C90.00 Multiple myeloma not having achieved remission; R09.02 Hypoxemia; Z51.5 Encounter for palliative care; I10 Essential (primary) hypertension; Z66 Do not resuscitate; K21.9 Gastro-esophageal reflux disease without esophagitis; G40.909 Epilepsy, unspecified, not intractable, without status epilepticus; R13.10 Dysphagia, unspecified; Z88.5 Allergy status to narcotic agent; Z88.8 Allergy status to other drugs, medicaments and biological substances; Z91.018 Allergy to other foods; Z85.46 Personal history of malignant neoplasm of prostate
CPT/HCPCS: 36600; 71045; 80164; 81001; 82040; 82247; 82310; 82374; 82435; 82565; 82803; 82947; 83605; 84075; 84132; 84155; 84295; 84450; 84460; 84520; 85025; 87040; 87077; 87186; 93005; 94640; 96361; 96365; 96375; 99285; A4218; C1758; J1200; J1650; J2060; J2270; J2543; J2930; J3480; J3490; J7030; J7120

== ENCOUNTER → 2019-05-24 | Outpatient (CLI) | payer OTHER ==
[~2019-05-24] MED LIST: ACET650S5 FT; ACYC800T99 FT; BACL-51 FT; BISA-229 FT; BISA10SU62 RC; CHLO473M14 PO; CLON-333 FT; DIVA125C12 FT; DIVA500T47 FT; DOCU50LI30 FT; ENOX40DI8 SQ; GABA300S FT; HYDR-385 FT; LACT1CAP18 FT; LAN30PT FT; LIDO700A19 TOP; LIDOCAINE PATCH; LORA2VIA28 SQ; MICO71PO4; MORP100S32 PO; OXYC-823 FT; OXYC5CAP21 FT; POLY17PO25 FT; POTA20PA25 FT; PRE5 FT; PROM25SU8 RC; SULF473O2 FT; [UNRECOGNIZED DRUG - CODE] FT; [UNRECOGNIZED DRUG - CODE] SQ; [UNRECOGNIZED DRUG - OTHER]; [UNRECOGNIZED DRUG - OTHER] FT
== END ==
LOC: AMB 02:30
PROVIDERS: ATTEND Nurse Practitioner
DX: R06.00 Dyspnea, unspecified (principal)
CPT/HCPCS: A0425; A0429

== ENCOUNTER → 2019-05-27 | Outpatient (CLI) | payer OTHER | LOC: AMB 17:35 | PROVIDERS: ATTEND Nurse Practitioner | DX: Z51.5 Encounter for palliative care (principal); C90.00 Multiple myeloma not having achieved remission | CPT/HCPCS: A0425; A0428 ==